=== PATIENT | male | born 1960 | race Caucasian/White ===

== ENCOUNTER 2016-10-21 07:45 | Day surgery (SDC) | payer OTHER ==
[2016-10-14 16:38] VITALS: BMI 24.0
[2016-10-21] MEDS ORDERED: LIDOCAINE HCL/PF 2% SDV 5ML VIAL ONE (07:55)
[2016-10-21] MEDS ORDERED: PROPOFOL 20 ML ONE ×2 (07:55)
[2016-10-21 08:50] VITALS: PULSE 66
[2016-10-21 09:29] VITALS: BP 106/67; TEMP 98
== END 2016-10-21 09:20 | disposition home or self-care (01) ==
LOC: FASU-ENDO 07:45
PROVIDERS: ATTEND Internal Medicine Gastroenterology
PROC: 0DJD8ZZ Inspection of Lower Intestinal Tract, Via Natural or Artificial Opening Endoscopic (ICD-10-PCS; principal; 2016-10-21 08:21)
DX: Z86.010 Personal history of colon polyps (principal); K57.30 Diverticulosis of large intestine without perforation or abscess without bleeding